=== PATIENT | female | born 1965 | race Caucasian/White ===

== ENCOUNTER 2018-09-27 10:38 | Day surgery (SDC) | payer OTHER ==
[2018-09-20 18:11] VITALS: BMI 33.2
[2018-09-27] MEDS ORDERED: methylPREDNISolone ACET (DEPO) 40 MG/1 ML VIAL ONE ×2 (13:02→14:26)
[2018-09-27] MEDS ORDERED: BUPIVACAINE HCL 0.25% 125 MG/50 ML VIAL ONE ×2 (13:02→14:26)
[2018-09-27] MEDS ORDERED: MIDAZOLAM HCL 2 MG/2 ML SINGLE DOSE VIAL ONE (13:22)
[2018-09-27] MEDS ORDERED: PROPOFOL 20 ML ONE ×3 (13:22→14:21)
--- NOTE | 2018-09-27 13:34 | PN ---
Progress Note (short form) - Note Progress Note: 52F s/p SARK POD #0. -Pain control. -WBAT RLE. -Percocet, Meloxicam ordered to patient's pharmacy. -f/u post-op trial of void. -Diet as tolerated. -Keep dressing clean & dry; d/c on Sunday & place waterproof Band-Aids over incision sites. -Cane vs crutches. -f/u [facility] [place] office 10/04/2018; call for appointment; . Angel Luis Coronado MD (Orthopaedic Surgery).
--- NOTE | 2018-09-27 13:35 | OP ---
Operative Note - Note: Operative Date: 09/27/18 Pre-Operative Diagnosis: Internal derrangements right knee Operation: 1. Surgical arthroscopy right knee. 2. Irrigation and debridement. 3. Large joint injection: Marcaine 0.25% 20cc, Depomedrol 40mg/mL 2mL Findings: Tricompartment osteoarthritis Tourniquet Pressure: 250mmHg Tourniquet Time: 27 min Post-Operative Diagnosis: Same as Pre-op Surgeon: Angel Luis Coronado Anesthesiologist/HAMMER OPERATOR: Paty Toth Anesthesia: General Estimated Blood Loss (mls): 0 Fluid Volume Replaced (mls): 800 (Crystalloid) Operative Report Dictated: Yes
[2018-09-27] MEDS ORDERED: SEVOFLURANE 250 ML BTL ONE (14:22)
[2018-09-27] MEDS ORDERED: oxyCODONE HCL 5 MG TABLET ONE (15:53)
[2018-09-27 16:00] VITALS: TEMP 98.1
[2018-09-27] MEDS ORDERED: KETOROLAC TROMETHAMINE 30 MG/1 ML VIAL ONE (16:03)
--- NOTE | 2018-09-27 16:03 | OP ---
Date of Operation: 09/27/2018 Surgeon: Angel Luis Coronado MD Pre-Operative Diagnosis: 1. Internal derangements right knee Post-Operative Diagnosis: Right knee: 1. Tri-compartment osteoarthritis Surgical Procedure: Right knee: 1. Surgical arthroscopy 2. Irrigation & debridement (3L NS) 3. Intra-articular (large joint) injection with 20cc 0.25% Marcaine and 4cc depomedrol (40mg/mL). Anesthesia: General (LMA). Position: Supine. Incision: Standard anterolateral knee arthroscopy portal. Tourniquet Pressure: 350mmHg. Tourniquet Time: 27 minutes. Estimated Blood Loss: 0cc. Intravenous Fluid: 800cc crystalloid. Specimens: None. Drains: None. Complications: None. Urine output: None. Bacteriology: None. Transfusions: None. Closure: 3-0 Nylon. Indications: The patient was indicated for a surgical arthroscopy of the right knee with debridement to facilitate improved motion and mobilization, to prevent complications associated with a sedentary lifestyle, and to further characterize the extent of arthritis within the knee. The patient was identified in the holding area by her armband. A long discussion was held with the patient regarding the risks, benefits and alternatives of the above-named procedure. Risks include but are not limited to: pain, bleeding, infection, damage to surrounding structures (including nerves, blood vessels, skin, ligaments, tendons and bone), wound complications, need for further surgery, blood clots, myocardial infarction, pulmonary embolism, anaesthesia complications, compartment syndrome, limb loss, limp, loss of function, and . Benefits as mentioned above. Alternatives include no surgery. All questions were answered. The patient and her family understood and agreed to the procedure. Informed consent was obtained, witnessed and verified. The patients correct operative limb - the right lower extremity - was marked, and the patient was taken to the operating room after being seen by the anesthesia and nursing staff. Procedure: The patient was brought into the operating room, placed on the OR table and secured with a safety strap. Consent and the operative site was again verified with the patient and nursing and anaesthesia staff. Anaesthesia was then administered without complication. 2g IV Ancef were administered. A time out was done led by me, the attending surgeon. The patient was positioned with bony prominences well padded, a tourniquet was placed proximally on the right thigh and set to 250mmHg. A lateral leg post was secured to the side of the OR table, adjacent to her thigh. The operative limb was prepped in standard sterile fashion using betadine prep & scrub, wiped off with alcohol, and then DuraPrep applied. The operative limb was then free draped. Time out was again done, the limb was exsanguinated using an Esmarch, the tourniquet was inflated, and the case began. Surface anatomy of the knee was drawn, marking the patella, patellar tendon, and medial & lateral joint lines. With the knee flexed to 45 degrees, a standard anterolateral arthroscopy portal was made using an 11 blade. A blunt trocar was then inserted into the knee at the same angle as the incision. The blunt trocar was then slipped into the suprapatellar pouch as the knee was slowly extended. The trocar was removed through its overlying canula, and the arthroscope was inserted in its place. The fluid inflow, which had already been primed, was then attached to the canula along with the outflow suction tubing. The knee was then insufflated with normal saline solution. The suprapatellar pouch was then inspected with immediate evidence of severe synovitis. The medial & lateral retro-patellar surfaces revealed Outerbridge Grade 3 chondromalacia. The trochlear groove demonstrated Outerbridge Grade 3 chondromalacia with deep fissures visible. The patellofemoral articulation appeared otherwise congruous. Next, the arthroscope was delivered into the medial gutter of the knee as the knee was slowly flexed. No loose bodies were seen. With gentle valgus force applied to the knee, the arthroscope was slipped into the medial compartment. Osteophyte adjacent to the medial femoral condyle was seen. The medial meniscus, and the cartilage of the medial femoral condyle and medial tibial plateau appeared healthy. Next, the arthroscope was delivered into the intercondylar notch. The ACL was visualized and appeared degenerative. The PCL was not visualized. Gentle varus stress was applied to the knee as the arthroscope was delivered into the lateral compartment of the knee. Osteophyte adjacent to the lateral femoral condyle was seen. The cartilage of the lateral femoral condyle and lateral tibial plateau revealed Outerbridge Grade 3 chondromalacia with deep fissures visible. The lateral meniscus appeared degenerative. The arthroscope was then delivered into the lateral gutter of the knee where no loose bodies were seen. The arthroscope was then returned to the suprapatellar pouch as the knee was gently extended. The knee was irrigated with 3L of normal saline solution. All fluid was suctioned out of the knee. An intra-articular injection consisting of 20mL of 0.25% Marcaine with 4mL of Depo-Medrol (40 mg/mL) was injected into the knee. Hemostasis was assured, and the incision was closed primarily using 3-0 nylon sutures in figure-8 fashion. Xeroform and a sterile, compressive dressing was applied. The tourniquet was released at a final time of 27 minutes. The sponge and needle counts were correct at the end of the case and I the attending was present and scrubbed throughout the case. The patient was then transferred to the recovery room in stable condition, as per the anesthesiology team, having tolerated the procedure well. Intra-operative photographs were captured using the arthroscope at numerous steps throughout the case. MD KASSI Young/[id number] MTDD
[2018-09-27] MEDS ORDERED: ONDANSETRON 4 MG/2 ML VIAL IVPUSH PRN (16:26)
[2018-09-27] MEDS ORDERED: oxyCODONE HCL 5 MG TABLET PO PRN ×2 (16:26)
[2018-09-27] MEDS ORDERED: LACTATED RINGERS SOLUTION 1,000 ML IV SCH (16:30)
[2018-09-27 17:22] VITALS: BP 106/57; PULSE 54
== END 2018-09-27 16:30 | disposition home or self-care (01) ==
LOC: FASU 10:38
PROVIDERS: ATTEND Orthopaedic Surgery Adult Reconstructive Orthopaedic Surgery
PROC: 3E0U33Z Introduction of Anti-inflammatory into Joints, Percutaneous Approach (ICD-10-PCS; 2018-09-27)
PROC: 0SBC4ZZ Excision of Right Knee Joint, Percutaneous Endoscopic Approach (ICD-10-PCS; principal; 2018-09-27 14:09)
DX: M17.11 Unilateral primary osteoarthritis, right knee (principal); M22.41 Chondromalacia patellae, right knee; M65.861 Other synovitis and tenosynovitis, right lower leg
CPT/HCPCS: 20610; 29877; G0289; 84703; 94760

== ENCOUNTER 2019-03-26 06:03 | Inpatient (IN) | payer OTHER ==
[2019-03-10 12:45] VITALS: BMI 33.4
[2019-03-26] MEDS ORDERED: VANCOMYCIN 1,250 MG in DEXTROSE 5%-WATER - 250 ML IVPB ONE (06:36)
[2019-03-26] MEDS ORDERED: CEFAZOLIN 2 GM in DEXTROSE 5%-WATER - 50 ML IVPB ONE (06:36)
[2019-03-26] MEDS ORDERED: TRANEXAMIC ACID 1000 MG/10 ML VIAL IVPUSH ONE (06:36)
[2019-03-26] MEDS ORDERED: SODIUM CHLORIDE 0.9% P/F 10 ML VIAL IJ ONE ×2 (07:03→08:55)
[2019-03-26] MEDS ORDERED: BUPIVACAINE LIPOSOME/PF (EXPAREL) 266 MG/20 ML VIAL ONE (07:03)
[2019-03-26] MEDS ORDERED: MIDAZOLAM HCL 2 MG/2 ML SINGLE DOSE VIAL ONE (07:03)
[2019-03-26] MEDS ORDERED: PROPOFOL 20 ML ONE ×2 (07:12→09:14)
[2019-03-26] MEDS ORDERED: SUCCINYLCHOLINE CHLORIDE 200 MG/10 ML SYRINGE ONE (07:12)
[2019-03-26] MEDS ORDERED: VANCOMYCIN 1,000 MG VIAL (RESTRICTED TO ID ONLY) ONE (07:13)
[2019-03-26] MEDS ORDERED: ceFAZolin SODIUM 1 GM VIAL ONE ×3 (07:13→10:54)
[2019-03-26] MEDS ORDERED: BUPIVACAINE HCL/PF 0.5% (5MG/ML) 10 ML VIAL ONE (07:58)
[2019-03-26] MEDS ORDERED: DEXAMETHASONE SOD PHOSPHATE 4 MG/1 ML VIAL ONE (08:11)
[2019-03-26] MEDS ORDERED: ONDANSETRON 4 MG/2 ML VIAL ONE (08:11)
[2019-03-26] MEDS ORDERED: KETOROLAC TROMETHAMINE 60 MG/2 ML VIAL ONE (08:54)
[2019-03-26] MEDS ORDERED: MORPHINE SULFATE 10 MG/1 ML *VIAL ONE (08:54)
[2019-03-26] MEDS ORDERED: EPINEPHrine/PF 1 MG/1 ML (1:1,000) AMPULE ONE (08:54)
[2019-03-26] MEDS ORDERED: BUPIVACAINE HCL/PF 2.5 MG/ML - 30 ML VIAL IJ ONE (08:55)
[2019-03-26] MEDS ORDERED: BENZOIN TINCTURE SWABSTICK TP ONE (10:04)
[2019-03-26] MEDS ORDERED: LACTATED RINGERS SOLUTION 1,000 ML IV SCH (10:30)
[2019-03-26] MEDS ORDERED: MAGNESIUM HYDROX 2400MG/30ML ORAL SUSPENSION 30 ML CUP PO PRN (10:30)
[2019-03-26] MEDS ORDERED: ONDANSETRON 4 MG/2 ML VIAL IVPUSH PRN (10:30)
[2019-03-26] MEDS ORDERED: MAG HYDROX/AL HYDROX/SIMETH 30 ML UNIT-DOSE CUP PO PRN (10:30)
[2019-03-26] MEDS ORDERED: TRANEXAMIC ACID 1000 MG/10 ML VIAL ONE (10:54)
[2019-03-26] MEDS ORDERED: oxyCODONE HCL 5 MG TABLET PO PRN ×2 (11:19)
--- NOTE | 2019-03-26 11:21 | PN ---
Progress Note (short form) - Note Progress Note: 53F s/p RIGHT total knee replacement POD #0. -Pain control. -DVT PPx: -Chemical: ASA 81mg PO BID x 6 weeks. -Mechanical: CATHRYN's, SCD's. -Incentive spirometry q15 min. -PT/OT/Rehab, OOB. -WBAT RLE. -Antibiotics: Ancef q6h x 3 post op doses. -f/u post-op trial of void. -f/u drain output. -Diet as tolerated. -Keep dressing clean & dry. -Care per medical hospitalist team. -f/u [facility] [place] office Sun04/04/2019; call for appointment; . -Will follow. Angel Luis Coronado MD (Orthopaedic Surgery).
--- NOTE | 2019-03-26 11:23 | OP ---
Operative Note - Note: Operative Date: 03/26/19 Pre-Operative Diagnosis: Right knee DJD Operation: Right TKA Implants: Ralph Triathlon. Femur - 2. Tibia - 2. Poly - 9mm, PS. Patella - 27mm, symmetric Post-Operative Diagnosis: Same as Pre-op Surgeon: Angel Luis Coronado [employer]: Silvio Coronado Anesthesiologist/DELIMER: Oj Hernandez Anesthesia: Spinal, Local Specimens Removed: Bone, soft tissue Estimated Blood Loss (mls): 0 Drains & Tubes with Location: 1 x deep HemoVac Fluid Volume Replaced (mls): 1,200 (Crystalloid) Operative Report Dictated: Yes
[2019-03-26] MEDS: ACETAMINOPHEN 325 MG TABLET (FP) PO SCH ×3 (12:36→23:58)
[2019-03-26] MEDS ORDERED: CEFAZOLIN 1 GM/D5W 50 ML IVPB SCH (13:30)
[2019-03-26] MEDS: CEFAZOLIN 1 GM/D5W 1 GM/50 ML BAG IVPB SCH ×2 (14:05→21:17)
--- NOTE | 2019-03-26 21:12 | HP ---
Admitting History and Physical - Admission Chief Complaint: right extr pain. denies chest pain, palpitations, nausea, vomiting, diarrhea History Source: Patient Limitations to Obtaining History: No Limitations - Past Medical History ...LMP: 02/06/19 Heme/Onc: Yes: Anemia - Smoking History Smoking history: Former smoker Have you smoked in the past 12 months: No If you are a former smoker, when did you quit?: 2000 - Alcohol/Substance Use Hx Alcohol Use: No Home Medications - Allergies Allergies/Adverse Reactions: Allergies Allergy/AdvReac Type Severity Reaction Status Date / Time aspirin AdvReac Verified 03/26/19 06:49 - Home Medications Home Medications: Ambulatory Orders Ferrous Gluconate [Fergon -] 324 mg PO DAILY 09/20/18 Review of Systems - Review of Systems Constitutional: reports: No Symptoms Eyes: reports: No Symptoms HENT: reports: No Symptoms Neck: reports: No Symptoms Cardiovascular: reports: No Symptoms Respiratory: reports: No Symptoms Gastrointestinal: reports: No Symptoms Genitourinary: reports: No Symptoms Musculoskeletal: reports: Extremity Pain Integumentary: reports: No Symptoms Neurological: reports: No Symptoms Endocrine: reports: No Symptoms Hematology/Lymphatic: reports: No Symptoms Psychiatric: reports: No Symptoms Pain Intensity: 6 Physical Examination Vital Signs: Vital Signs Temperature 98.2 F 03/26/19 12:31 Pulse Rate 72 03/26/19 12:31 Respiratory Rate 18 03/26/19 12:31 Blood Pressure 110/66 03/26/19 12:31 O2 Sat by Pulse Oximetry (%) 98 03/26/19 12:31 Constitutional: Yes: Well Nourished, No Distress Eyes: Yes: WNL HENT: Yes: WNL Neck: Yes: WNL Cardiovascular: Yes: WNL Respiratory: Yes: WNL Gastrointestinal: Yes: WNL Renal/: Yes: WNL Musculoskeletal: Yes: Joint Stiffness Extremities: Yes: WNL Edema: No Peripheral Pulses WNL: Yes Integumentary: Yes: WNL Wound/Incision: Yes: Clean/Dry, Well Approximated Neurological: Yes: WNL ...Motor Strength: WNL Psychiatric: Yes: WNL Assessment/Plan 53 yo lady S/P right TKA pain management. incentive spirometry cont stool softeners to prevent opiod induced constipation -GI, DVT prophylaxis. -ID: treated with Ancef -chronic iron deficiency anemia: on ferrous sulfate. -PT/OT/OOB as tolerated -oral diet -AM labs requested -will f/u in AM
[2019-03-26] MEDS: SENNOSIDES/DOCUSATE COMBO (SENNA PLUS) TABLET (UD) PO SCH (21:18)
[2019-03-26] MEDS: ASPIRIN 81 MG CHEWABLE TABLETS PO SCH (21:18)
[2019-03-26] MEDS: oxyCODONE HCL 10 MG SUSTAINED ACTING TABLET PO SCH (21:18)
[2019-03-27] MEDS: CEFAZOLIN 1 GM/D5W 1 GM/50 ML BAG IVPB SCH (03:23)
[2019-03-27] MEDS: ACETAMINOPHEN 325 MG TABLET (FP) PO SCH ×3 (06:49→18:20)
[2019-03-27 07:28] LABS: HEMATOCRIT 31.4 % (32.4-45.2); HEMOGLOBIN 10.6 GM/dl (10.7-15.3); MCH 31.7 pg (25.7-33.7); MCHC 33.7 g/dl (32.0-36.0); MEAN CELL VOLUME 93.9 fl (80-96); MEAN PLT VOLUME 8.5 fl (7.5-11.1); PLATELET COUNT 191 K/MM3 (134-434); RBC 3.35 M/mm3 (3.60-5.2); RDW 12.5 % (11.6-15.6); WHITE BLOOD COUNT 7.1 K/mm3 (4.0-10.8)
[2019-03-27 07:40] LABS: CALCIUM 8.6 mg/dl (8.5-10); CREATININE 0.8 mg/dl (0.55-1.3)
--- NOTE | 2019-03-27 08:03 | SPA.POSTOP ---
- POST-OP NOTE POD #1 s/p Right knee replacement No acute events since surgical procedure per RN notes. Patient resting comfortably. Pain management via prn meds. Denies n/v/f/c, CP or SOB. Last Vital Signs Temp Pulse Resp BP Pulse Ox 98.1 F 70 16 104/59 L 96 03/27/19 05:00 03/27/19 05:00 03/27/19 05:00 03/27/19 05:00 03/27/19 05:00 Physical Exam General: No acute distress. Pulm: breathing comfortably Cor: Regular rhythm LE: Soft, non-tender bilat. SCD's bilat. RLE: dressing is clean, drain in place with sanguinous drainage Output: 520ml Problem List - Problems (1) Status post right knee replacement Assessment/Plan: Plan -pt appears to be doing well, knee drainage is fairly high, will follow output and trend HCT -OOB/ambulate with PT -Lovenox for DVT ppx has ASA allergy -pain control Code(s): Z96.651 - PRESENCE OF RIGHT ARTIFICIAL KNEE JOINT
[2019-03-27] MEDS: FERROUS SO4 325 MG TABLET (FP) PO SCH (08:09)
--- NOTE | 2019-03-27 08:59 | OP ---
Date of Operation: 03/26/2019 Pre-Operative Diagnosis: Osteoarthritis right knee. Post-Operative Diagnosis: Osteoarthritis right knee. Procedure Performed:Right total knee replacement. Surgeon: Angel Luis Coronado M.D. Director Drug: Silvio Coronado M.D., Eve Vila PA-C. Anesthesia: Spinal, sedation, adductor canal block. Position: Supine Incision: Midline Specimens Removed: Bones, soft tissue. Estimated Blood Loss: 0mL. Intravenous Fluid: 1.2L crystalloid. Specimens: None. Drains: 1 x deep HemoVac. Complications: None. Urine Output: None. Bacteriology: None. Transfusions: None. Closure: No. 1 Vicryl, 3-0 Biosyn absorbable sutures. Tourniquet Pressure: 350 mmHg. Tourniquet Time: 132 minutes. INDICATIONS: The patient was indicated for a right total hip replacement in order to facilitate improved motion and mobilization, and to prevent the complications associated with a sedentary lifestyle. The patient was identified in the holding area by her armband. A long discussion was held with the patient in the presence of her family regarding the risks, benefits and alternatives of the above-named procedure. Risks include but are not limited to: pain, bleeding, infection, damage to surrounding structures (including nerves, blood vessels, skin, ligaments, tendons and bone), wound complications, failure of hardware/implants/reduction, need for further surgery, blood clots, myocardial infarction, pulmonary embolism , cerebrovascular insult, anesthesia complications, compartment syndrome, limb loss, limp, loss of function, and . Benefits as mentioned above. Alternatives include no surgery. All questions were answered. The patient and her family understood and agreed to the procedure. Informed consent was obtained, witnessed and verified by hospital nursing staff. The patients correct operative limb - that is the right lower extremity - was marked. The patient was then seen by the anesthesia and nursing staff. In the preoperative holding area, the patient then received a lower extremity adductor canal nerve block on the operative limb. The patient was taken to the operating room by the anesthesia and nursing staff. PROCEDURE: The patient was brought into the operating room and transferred to the OR table , and secured with a safety strap. Consent and the operative site were again verified with the patient, the nursing team, the surgical team, and the anesthesiology team. Anesthesia, IV antibiotics, and TXA were then administered without complication. A time out was done, led by me the attending surgeon. The patient was positioned with all bony prominences well padded, and a tourniquet was placed proximally on the thigh of the operative limb and set to 350mmHg. The operative limb was prepped in standard sterile fashion using betadine prep & scrub, wiped off with alcohol, DuraPrep applied, and then free draped. A time-out was again done. The limb was then exsanguinated using elevation and an Esmarch. The tourniquet was inflated, and the case began. A midline longitudinal incision was made over the operative knee followed by a subvastus exposure. The infrapatellar fat pad was excised. A peripatellar neurectomy was performed using electrocautery. The patella was everted, and a free-hand cut was made using an oscillating saw blade to facilitate patellar resurfacing. With the intention of implanting a 27mm, symmetric patellar button, a drill guide was utilized to ream 3 drill holes into the cut surface of the patella. The knee was then flexed to 90 degrees and the anterior cruciate ligament (ACL) and posterior cruciate ligament (PCL) were transected using electrocautery. Throughout the case, sharp and blunt Hohmann retractors were used to provide full exposure of the knee, and also to protect the collateral ligaments, the patellar ligament, the quadriceps mechanism, and other soft tissue structures. Next, attention was turned to the proximal tibia. The tibia was subluxed anteriorly and the extra-medullary jig was assembled and placed. With alignment verified, the tibial cutting block was pinned into position and the proximal tibial cut was made using an oscillating saw. The bone cut was freed of all soft tissue attachments using electrocautery. Next, attention was turned to the distal femur. An opening reamer was used to access the medullary canal of the distal femur. This was approximately 1cm anterior to the intercondylar notch and centered over the lateral aspect of the medial femoral condyle. The intra-medullary alignment jig was then inserted, and the distal femoral cutting block was pinned into position. The distal femoral cut was then made using an oscillating saw. Rotation of the distal femoral sizing block was dialed in after referencing Kyles Ford's line, the trans-epicondylar axis, and the posterior condylar axis. The size of the distal femur was measured and a sized 4-in-1 distal femoral cutting block was pinned into position. The anterior, anterior chamfer, posterior, and posterior chamfer cuts were then made using an oscillating saw. All bone cuts were removed. With the knee in full extension, laminar spreaders were used to facilitate excision of the medial and lateral menisci using electrocautery. With the knee in full extension and gentle traction applied to the ankle, a rectangular box could be visualized where the bone cuts had been made. With gentle impaction of the proximal tibia into the distal femur, excellent limb alignment was confirmed. A spacer block was then used to confirm symmetric space/gap balance in both full extension and in 90 degrees of flexion of the knee. The notch cutting block was pinned into place over the distal femur and the notch cuts were made using a chisel and an oscillating saw. The bone cut and soft tissue attachments were excised using electrocautery. The tibial preparation plate was then pinned into place, the trial femoral component was positioned, and an appropriately sized trial polyethylene liner was inserted. The knee was then taken through a full range of motion, demonstrating excellent stability and range of motion in the coronal, sagittal, and axial planes from 0 to 130 degrees of flexion. At 90 degrees of flexion, 2 lug holes were drilled via the femoral trial component into the distal femoral bone bed. The femoral trial component and polyethylene liner were then removed, and the proximal tibial preparation was completed using a drill guide, drill, and keel punch. All tibial trial components were then removed. All cut bone surfaces, soft tissues, and remaining surgically exposed structures were then thoroughly irrigated using pulse lavage. The cut bone surfaces were dried, and the interstices of the bone bed were free of blood, water, and lipid content. Final components were implanted using low viscosity cement mixed in a vacuum. Cementation was performed using a pressurized gun. The trial polyethylene liner was then inserted. The knee was then placed in full extension while the cement hardened. All extraneous cement was removed. Once the cement had hardened, the knee was taken through a full range of motion and alignment and stability in the coronal, sagittal, and rotation planes in full extension and at 90 degrees of flexion were satisfactory. Passive range of motion was demonstrated from 0 to 130 degrees of knee flexion. The knee was thoroughly irrigated once again after removal of the trial polyethylene insert. The final polyethylene liner was then inserted. Once again, the knee was taken through a full range of motion and alignment and stability in the coronal, sagittal, and rotation planes in full extension and at 90 degrees of flexion were satisfactory. The leg was straightened, and passive range of motion was demonstrated from 0 to 130 degrees of knee flexion. Final components utilized: Ralph Triathlon Femur - size #2. Tibia - size #2. Polyethylene liner - 9mm, PS (posterior stabilized). Patella - 27mm, symmetric. A 1/8 HemoVac drain was placed to drain the subvastus space. The wounds were closed primarily using No. 1 Vicryl sutures, and the skin was eventually closed using 3-0 Biosyn in intracuticular running fashion. Next, the skin surface was cleaned using saline-soaked lap pads and then dried using dry lap pads. Benzoin and Steri-Strips as well as a JumpStart dressing were applied over the wounds, and Webril as well as Dionte wraps were placed from the foot all the way up to the thigh with a compressive, sterile dressing. Another 1g of Ancef and 1g TXA were administered intravenously. The tourniquet was then released at a final time of 132 minutes. The sponge and needle counts were correct at the end of the case, and I, the attending surgeon, was present and scrubbed throughout the case. AP & lateral x-rays taken in the operating room then confirmed satisfactory implant positioning, and limb alignment and with no evidence of subsidence, loosening, or petar-prosthetic fracture or unintentionally retained radio-opaque foreign bodies. The patient was then transferred to the hospital bed and then to the recovery room in stable condition having tolerated this procedure well. MD KASSI Young/[id number] MTDD
[2019-03-27] MEDS: PANTOPRAZOLE 40 MG TABLET (FP) PO SCH (09:28)
[2019-03-27] MEDS: oxyCODONE HCL 10 MG SUSTAINED ACTING TABLET PO SCH ×3 (09:28→21:08)
[2019-03-27] MEDS: SENNOSIDES/DOCUSATE COMBO (SENNA PLUS) TABLET (UD) PO SCH ×2 (09:28→21:08)
[2019-03-27] MEDS: ASPIRIN 81 MG CHEWABLE TABLETS PO SCH ×2 (09:28→21:08)
[2019-03-27] MEDS ORDERED: MULTIVITAMINS (DAILY MVI) TABLET (FP) PO SCH (10:00)
--- NOTE | 2019-03-27 10:19 | PN ---
Progress Note, Physician Chief Complaint: right knee pain - Current Medication List Current Medications: Active Medications Acetaminophen (Tylenol -) 650 mg PO Q6H [facility] Stop: 03/29/19 11:59 Last Admin: 03/27/19 06:49 Dose: 650 mg Al Hydroxide/Mg Hydroxide (Mylanta Oral Suspension -) 30 ml PO Q4H PRN PRN Reason: DYSPEPSIA Aspirin (Asa -) 81 mg PO BID [facility] Last Admin: 03/27/19 09:28 Dose: 81 mg Ferrous Sulfate (Feosol -) 325 mg PO DAILY@0800 [facility] Last Admin: 03/27/19 08:09 Dose: 325 mg Magnesium Hydroxide (Milk Of Magnesia -) 30 ml PO PRN PRN PRN Reason: CONSTIPATION Multivitamins/Minerals/Vitamin C (Tab-A-Vit -) 1 tab PO DAILY [facility] Last Admin: 03/27/19 09:28 Dose: 1 tab Ondansetron HCl (Zofran Injection) 4 mg IVPUSH Q6H PRN PRN Reason: NAUSEA Oxycodone HCl (Roxicodone -) 5 mg PO Q3H PRN PRN Reason: PAIN LEVEL 1-5 Last Admin: 03/26/19 16:47 Dose: 5 mg Oxycodone HCl (Roxicodone -) 10 mg PO Q3H PRN PRN Reason: PAIN LEVEL 6-10 Oxycodone HCl (Oxycontin -) 10 mg PO BID [facility] Stop: 03/29/19 11:19 Last Admin: 03/27/19 09:57 Dose: Not Given Pantoprazole Sodium (Protonix -) 40 mg PO DAILY [facility] Last Admin: 03/27/19 09:28 Dose: 40 mg Senna/Docusate Sodium (Pericolace -) 2 tablet PO BID [facility] Last Admin: 03/27/19 09:28 Dose: 2 tablet - Objective Vital Signs: Vital Signs Temperature 98.1 F 03/27/19 05:00 Pulse Rate 70 03/27/19 09:35 Respiratory Rate 18 03/27/19 09:35 Blood Pressure 96/57 L 03/27/19 09:35 O2 Sat by Pulse Oximetry (%) 97 03/27/19 09:35 Constitutional: Yes: Well Nourished, No Distress, Calm Eyes: Yes: WNL HENT: Yes: WNL Neck: Yes: WNL Cardiovascular: Yes: WNL Respiratory: Yes: WNL Gastrointestinal: Yes: WNL Genitourinary: Yes: WNL Musculoskeletal: Yes: Joint Stiffness Extremities: Yes: WNL Edema: No Peripheral Pulses WNL: Yes Integumentary: Yes: WNL Wound/Incision: Yes: Clean/Dry, Well Approximated, Dressing Dry and Intact Neurological: Yes: WNL Psychiatric: Yes: WNL Labs: CBC, BMP 03/27/19 07:15 03/27/19 07:15 Assessment/Plan 53 yo ladkamla S/P right TKA POD#1. continue pain management. incentive spirometry cont stool softeners to prevent opiod induced constipation -GI, DVT prophylaxis. -ID: treated with Ancef -chronic iron deficiency anemia: on ferrous sulfate. -PT/OT/OOB as tolerated. PT to start today. -oral diet -labs and meds reviewed. assessment and plan discussed with pt labs and meds reviewed hopefully will DC home tomorrow.
--- NOTE | 2019-03-27 11:05 | PN ---
Progress Note (short form) - Note Progress Note: 53F POD1 s/p R TKR under spinal with peripheral nerve blocks for post operative pain management. Pt states pain is well controlled and reports no anesthetic complications. AVSS. Slight ipsilateral numbness likely related to nerve blocks is resolving. Continue current regimen.
[2019-03-28] MEDS: ACETAMINOPHEN 325 MG TABLET (FP) PO SCH ×3 (06:23→12:50)
[2019-03-28 07:40] LABS: HEMATOCRIT 32.3 % (32.4-45.2); HEMOGLOBIN 10.9 GM/dl (10.7-15.3); MCH 31.8 pg (25.7-33.7); MCHC 33.8 g/dl (32.0-36.0); MEAN CELL VOLUME 94.1 fl (80-96); MEAN PLT VOLUME 8.8 fl (7.5-11.1); PLATELET COUNT 210 K/MM3 (134-434); RBC 3.43 M/mm3 (3.60-5.2); RDW 12.8 % (11.6-15.6); WHITE BLOOD COUNT 7.7 K/mm3 (4.0-10.8)
[2019-03-28] MEDS: oxyCODONE HCL 10 MG SUSTAINED ACTING TABLET PO SCH (09:13)
[2019-03-28] MEDS: FERROUS SO4 325 MG TABLET (FP) PO SCH (09:14)
[2019-03-28] MEDS: SENNOSIDES/DOCUSATE COMBO (SENNA PLUS) TABLET (UD) PO SCH (09:14)
[2019-03-28] MEDS: PANTOPRAZOLE 40 MG TABLET (FP) PO SCH (09:14)
[2019-03-28] MEDS: ASPIRIN 81 MG CHEWABLE TABLETS PO SCH (09:14)
--- NOTE | 2019-03-28 09:20 | PN ---
Progress Note (short form) - Note Progress Note: POD#2 Pt without any complaints today. No nausea or emesis. No CP or SOB. OOB to chair this am. Vital Signs Period Temp Pulse Resp BP Sys/Goodwin Pulse Ox Last 24 Hr 97.6 F-100 F 70-90 18-20 96-116/56-69 95-100 ROSELINE:30-100-10ml serosangrenous GEN: A&0x3, NAD CV: RRR Lungs; CTA b/l ABD: soft, non-distended, non-tender LE: b/l LE soft, no calf tenderness or swelling noted b/l. Surgical operative dressing c/d/i, Hemovac removed with tip intact. Pressure dressing and maria ines wrap applied. Neuro: 5/5 dorsi/plantar/EHL flexion b/l CBC, BMP /02/19 07:15 08//19 07:15 A/p: 53 yo female s/p R TK replacement, POD#2 Plan for discharge to home today with services Care D/w Dr. Angel Luis Coronado DVT ppx with aspirin 81 mg BID Oral pain medications as needed OOB and ambulate with PT.
--- NOTE | 2019-03-28 14:13 | DS ---
"Physical Examination Vital Signs: Vital Signs Temperature 99.6 F 03/28/19 06:00 Pulse Rate 84 03/28/19 06:00 Respiratory Rate 20 03/28/19 06:00 Blood Pressure 110/60 03/28/19 06:00 O2 Sat by Pulse Oximetry (%) 95 03/28/19 06:00 Constitutional: Yes: Well Nourished, No Distress Eyes: Yes: WNL HENT: Yes: WNL Neck: Yes: WNL Cardiovascular: Yes: WNL Respiratory: Yes: WNL Gastrointestinal: Yes: WNL Renal/: Yes: WNL Musculoskeletal: Yes: Joint Stiffness Extremities: Yes: WNL Edema: No Peripheral Pulses WNL: Yes Integumentary: Yes: WNL Wound/Incision: Yes: Clean/Dry, Well Approximated, Dressing Dry and Intact Neurological: Yes: WNL Psychiatric: Yes: WNL Labs: CBC, BMP 03/28/19 07:15 03/27/19 07:15 Discharge Summary Reason For Visit: RIGHT KNEE OSTEOARTHRITIS Current Active Problems Status post right knee replacement (Acute) Hospital Course: 53 yo lady S/P right TKA POD#2. continue pain management. incentive spirometry cont stool softeners to prevent opiod induced constipation -GI, DVT prophylaxis. -ID: treated with Ancef -chronic iron deficiency anemia: on ferrous sulfate. -PT/OT/OOB as tolerated. PT well tolerated -oral diet -labs and meds reviewed. Condition: Stable - Instructions Diet, Activity, Other Instructions: Dr. Coronado Discharge Instructions for Knee Replacement Post Operative Instructions Physical activity Physical Therapist will come to your home for the first 5 days. You will be set up with outpatient PT at your first post-operative visit. Use assistive devices for ambulation at all times. Weight bearing as tolerated on your surgical side. Do not put pillow under knee. May put pillow under heel. Wound care Leave your surgical dressing in place. Do not change the dressing until seen by your surgeon in the office. No baths or showers. Do not submerge your incision. Do not apply any ointments or lotions to your incision. Please call the office if your dressing is soiled/dirty or is falling off. Apply Graduated Compression Stockings (TEDS) to both lower extremities - remove daily for hygiene ONLY. Diet There are no dietary restrictions. Eat healthy, high-fiber foods. Drink 6 to 8 glasses of liquid each day. This will assist in keeping your bowels are regular. Pain management Any pain prescription medication ordered should be taken as prescribed for moderate to severe pain. Do not take additional Tylenol while taking Percocet. To prevent blood clots: take ASPIRIN 81mg twice daily x 6 weeks post op to prevent blood clots. Call Dr. Coronado for any of the following: Severe pain not relieved by medication Fever of 101 or higher Excessive bleeding or drainage on dressing Inability to urinate If you experience chest pain or shortness of breath, please seek emergency care immediately. Please call the office at to confirm your post-op appointment for the week following surgery. [facility] RN: This report was requested by: Papo Sneed | Reference #: [id number] Disposition: HOME - Home Medications Comprehensive Discharge Medication List: Ambulatory Orders Ferrous Gluconate [Fergon -] 324 mg PO DAILY 09/20/18"
[2019-03-28 14:30] VITALS: BP 120/68; PULSE 83; TEMP 98.1
--- NOTE | 2019-03-28 15:42 | PATH ---
Surgical Pathology Report Patient Name: CHAYO HORNE Med. Rec. #: [id number] /Age/Gender: 1965 (Age: 53) / F Account: [id number] Location: [facility] [facility] Taken: 03/26/2019 Received: 03/26/2019 Reported: 03/28/2019 Physicians: Angel Luis Coronado M.D. Specimen(s) Received BONES RIGHT KNEE Clinical History Right knee osteoarthritis Final Diagnosis BONES, KNEE, RIGHT, TOTAL KNEE REPLACEMENT: BONE WITH DEGENERATIVE JOINT DISEASE AND REACTIVE SYNOVIUM. Electronically Signed Danica Simmons M.D. Gross Description Received in formalin labeled "bones right knee," is an 11.0 x 8.0 x 1.8 cm aggregate of multiple portions of bone and soft tissue. The tibial plateau measures 6.8 x 4.3 x 1.3 cm. There is a 1.0 cm in greatest dimension area of eburnation identified. The remaining articular surfaces are waters-yellow and focally granular. The underlying trabecular bone is yellow and hard. Director Of Student Services sections are submitted in one cassette, following decalcification. 03/27/2019 saudi03/27/2019
--- NOTE | 2019-03-29 14:02 | PN ---
Progress Note (short form) - Note Progress Note: 53F s/p RIGHT total knee replacement POD #2. Pain well controlled. No acute events overnight. Pt. denies overnight history of headaches, chest pain, shortness of breath, nausea, vomiting, chills, & sweats. (+) Voiding; (-) Flatus; (-) BM. Tolerating diet. (+) Walked in hallway. All labs and vitals reviewed. PE: AAO x 3, NAD. R-Knee: Dressing C/D/I. HemoVac drain intact & in place; output 10cc/shift; drain removed on rounds. NVI distally. A/P: 53F doing well s/p RIGHT total knee replacement POD #2. -Pain control. -DVT PPx: -Chemical: ASA 81mg PO BID x 6 weeks. -Mechanical: CATHRYN's, SCD's. -Incentive spirometry q15 min. -PT/OT/Rehab, OOB. -WBAT RLE. -Diet as tolerated. -Keep dressing clean & dry. -Care per medical hospitalist: Dr. Kimble. -f/u [facility] [place] office 1-2 weeks; call for appointment; . -Will follow. Angel Luis Coronado MD (Orthopaedic Surgery).
== END 2019-03-28 14:55 | disposition home or self-care (01) | DRG 470 ==
LOC: FM/S 06:03
PROVIDERS: ADMIT Orthopaedic Surgery Adult Reconstructive Orthopaedic Surgery; ATTEND Internal Medicine
PROC: 0SRC0J9 Replacement of Right Knee Joint with Synthetic Substitute, Cemented, Open Approach (ICD-10-PCS; principal; 2019-03-26 08:43)
DX: M17.11 Unilateral primary osteoarthritis, right knee (principal); D50.9 Iron deficiency anemia, unspecified; Z87.891 Personal history of nicotine dependence
CPT/HCPCS: 36415; 73560-TC-RT-FY; 80048; 81025; 85027; 88305-TC; 88311-TC; 94760; 97116-GP; 97163-GP

== ENCOUNTER 2021-05-09 04:25 | Day surgery (SDC) | payer OTHER ==
[2021-05-06 08:26] VITALS: BMI 35.9
[2021-05-09] MEDS ORDERED: PROPOFOL 20 ML ONE ×2 (07:21)
[2021-05-09] MEDS ORDERED: DEXMEDETOMIDINE HCL 200 MCG/2 ML IVPB ONE (08:09)
[2021-05-09] MEDS ORDERED: ACETAMINOPHEN INJECTION 100 ML IVPB ONE (08:09)
[2021-05-09] MEDS ORDERED: MIDAZOLAM HCL 2 MG/2 ML SINGLE DOSE VIAL ONE (08:11)
[2021-05-09] MEDS ORDERED: PHENYLEPHRINE HCL 10 MG/1 ML SINGLE DOSE VIAL ONE (09:02)
[2021-05-09] MEDS ORDERED: ceFAZolin SODIUM 1 GM VIAL IVPB ONE (09:17)
[2021-05-09] MEDS ORDERED: PROMETHAZINE HCL 25 MG/1 ML VIAL IVPB PRN (10:18)
[2021-05-09] MEDS ORDERED: LACTATED RINGERS SOLUTION 1,000 ML IV SCH (10:30)
[2021-05-09 12:36] VITALS: BP 110/76; PULSE 60; TEMP 98.6
== END 2021-05-09 12:15 | disposition home or self-care (01) ==
LOC: JASU-SURG 04:25
PROVIDERS: ATTEND Orthopaedic Surgery Adult Reconstructive Orthopaedic Surgery
PROC: 07DR3ZZ Extraction of Iliac Bone Marrow, Percutaneous Approach (ICD-10-PCS; 2021-05-09)
PROC: 0QSFXZZ Reposition Left Patella, External Approach (ICD-10-PCS; principal; 2021-05-09 07:30)
DX: M97.12XA Periprosthetic fracture around internal prosthetic left knee joint, initial encounter (principal)
CPT/HCPCS: 76000-TC-FY; 94760; J0131